=== PATIENT | male | born 1955 | race Caucasian/White ===

== ENCOUNTER 2019-12-22 08:11 | Outpatient (CLI) | payer BC ==
--- NOTE | 2019-12-22 09:32 | ULT ---
BILATERAL CAROTID DUPLEX ULTRASOUND: Date: 12/22/2019 HISTORY: Carotid bruit. FINDINGS: Real-time imaging of the right and left carotid systems shows prominent soft plaque formation of the distal common carotid artery, also plaque at the origin of both internal carotid arteries. On the right side, peak systolic velocities of the common carotid were 91 cm/second. Internal carotid velocities were 136 cm/second and external carotid velocities were 137 cm/second. On the left side, peak systolic velocities of the common carotid were 160 cm/second. Internal caroti d velocities were 128 cm/second and external carotid velocities were 146 cm/second. Vertebral flow was antegrade bilaterally. IMPRESSION: Peak systolic velocity measurements in both internal carotid arteries that would suggest 50-69% narro wing. The diastolic velocity measurements and ratios all would indicate less than 50% narrowing. POS: LUIS DANIEL
== END 2019-12-22 08:12 | disposition home or self-care (01) ==
LOC: BICULT 08:11
PROVIDERS: ATTEND Nurse Practitioner Family
DX: R09.89 Other specified symptoms and signs involving the circulatory and respiratory systems (principal)
CPT/HCPCS: 93880